=== PATIENT | female | born 1965 | race Caucasian/White ===

== ENCOUNTER → 2017-01-29 | Outpatient (CLI) | payer SELFPAY ==
[~2017-01-29] MED LIST: ATENOLOL50 MG PO; CITALOPRAM20 MG PO; HYDR25T PO; K-NORM10 MEQ PO; LOVASTATIN20 MG PO; SYNTHROID0.075 MG PO
== END | disposition home or self-care (01) ==
LOC: MAMMO 01-10 13:30
DX: Z12.31 Encounter for screening mammogram for malignant neoplasm of breast (principal)

== ENCOUNTER → 2018-03-13 | Outpatient (CLI) | payer OTHER | END | disposition home or self-care (01) | LOC: MAMMO 14:01 | DX: Z12.31 Encounter for screening mammogram for malignant neoplasm of breast (principal); R92.1 Mammographic calcification found on diagnostic imaging of breast ==

== ENCOUNTER 2024-01-11 16:42 | Emergency (ER) | payer OTHER ==
[~2024-01-11] VITALS: Ht 170.1 cm; Wt 81.6 kg
[2024-01-11 16:55] VITALS: BP 118/81
[2024-01-11] MEDS ORDERED: DIAZEPAM 5 MG TAB PO ONE (17:05)
[2024-01-11] MEDS ORDERED: Acetaminophen/Oxycodone 5 MG/325 MG TABLET PO ONE (17:05)
[2024-01-11] MEDS ORDERED: CYCLOBENZAPRINE10 MG PO (17:33)
[2024-01-11] MEDS ORDERED: HYDROCODONE-AC1 EAC1 PO (17:33)
== END 2024-01-11 17:39 | disposition home or self-care (01) ==
LOC: ED 16:42
DX: M47.816 Spondylosis without myelopathy or radiculopathy, lumbar region (principal); M79.7 Fibromyalgia; I10 Essential (primary) hypertension; E78.00 Pure hypercholesterolemia, unspecified